=== PATIENT | female | born 1995 | race Caucasian/White ===

== ENCOUNTER 2023-06-10 18:54 | Inpatient (IN) | payer BC ==
[2023-06-10] MEDS: Lactated Ringer's 1,000 ML IV SCH (19:20)
[2023-06-10 19:52] VITALS: BMI 36.5
[2023-06-10] MEDS ORDERED: Misoprostol 200 MCG TAB RC PRN (20:30)
[2023-06-10] MEDS ORDERED: Diphenoxylate HCl/Atropine Tablet PO PRN ×2 (20:30)
[2023-06-10] MEDS ORDERED: Lidocaine 1% (PF) 30 ML VIAL SC PRN (20:30)
[2023-06-10] MEDS ORDERED: Oxytocin 30 units/NS 500 ML 500 ML IVPB SCH (20:30)
[2023-06-10] MEDS ORDERED: hydrALAZINE 20 MG/ML VIAL SLOW IVP PRN (20:30)
[2023-06-10] MEDS ORDERED: Methylergonovine 0.2 MG/ML VIAL IM PRN (20:30)
[2023-06-10] MEDS ORDERED: Carboprost 250 MCG/ML AMP IM PRN (20:30)
[2023-06-10] MEDS ORDERED: Oxytocin 30 units/NS 500 ML 500 ML IV SCH (20:30)
[2023-06-10] MEDS ORDERED: Ondansetron PF 4 MG/2 ML Vial IVP PRN (20:30)
[2023-06-10] MEDS ORDERED: Ibuprofen 800 MG TAB PO PRN (20:30)
[2023-06-10] MEDS ORDERED: Promethazine HCl 25 MG/ML VIAL IM PRN (20:30)
[2023-06-10] MEDS: Misoprostol 100 MCG TAB VAG SCH (20:40)
[2023-06-10 21:13] LABS: Hematocrit 37.2 % (34.9-44.5); Hemoglobin 12.6 g/dL (12.0-15.5); Mean Corpuscular HGB CONC 33.9 g/dL (32.0-36.0); Mean Corpuscular Hemoglobin 27.1 pg (27.0-33.0); Mean Platelet Volume 13.8 fl (7.4-10.4); Platelet Count 213 10x3/uL (150-450); RBC Distribution Width 13.7 % (11.5-14.5); Red Blood Cell (RBC) Count 4.65 10x6/uL (3.90-5.03); White Blood Cell (WBC) Count 9.8 10x3/uL (3.5-10.5)
[2023-06-10 21:14] LABS: Glucose 116 mg/dL (70-105)
[2023-06-10 22:02] LABS: HBSAg Index 0.18 S/CO (0-0.99); Hep B Surf Ag - L&D Non-Reactive S/CO (NonReactive)
[2023-06-10 22:08] LABS: Syphilis Antibody Nonreactive (Nonreactive); Syphilis Antibody Index 0.08 S/CO (<1.00 Non-Reactive)
[2023-06-11] MEDS: Misoprostol 100 MCG TAB VAG SCH ×4 (04:05→22:37)
[2023-06-11] MEDS: Lactated Ringer's 1,000 ML IV SCH ×3 (04:11→16:41)
[2023-06-11] MEDS ORDERED: Bupivacaine PF 0.5% 30 ML VIAL ONE (08:00)
[2023-06-11] MEDS ORDERED: fentaNYL 50 mcg/mL 1 mL Vial SLOW IVP SCH (08:00)
[2023-06-11] MEDS ORDERED: Bupivacaine 0.25% HCL 30 ML VIAL ONE (08:00)
[2023-06-11] MEDS ORDERED: ePHEDrine Sulfate 50 MG/10 ML VIAL ONE (08:00)
[2023-06-11] MEDS ORDERED: fentaNYL 50 mcg/mL 1 mL Vial ONE (08:10)
[2023-06-11] MEDS ORDERED: fentaNYL/Ropivacaine Epidural 100 ML ONE (08:23)
[2023-06-11] MEDS ORDERED: diphenhydrAMINE 50 MG/ML VIAL IVP PRN (10:31)
[2023-06-11] MEDS ORDERED: Acetaminophen 325 MG TAB PO PRN (10:31)
[2023-06-11] MEDS ORDERED: ePHEDrine Sulfate 50 MG/10 ML VIAL SLOW IVP PRN (10:31)
[2023-06-11] MEDS ORDERED: Lactated Ringer's 500 ML IV PRN (10:31)
[2023-06-11] MEDS ORDERED: Ondansetron PF 4 MG/2 ML Vial IVP PRN (10:31)
[2023-06-11] MEDS ORDERED: Naloxone HCl 0.4 mg/ml Vial IVP PRN ×2 (10:31)
[2023-06-11] MEDS ORDERED: Moisturizing Cream (Eucerin) 113 GM JAR TOP PRN (10:31)
[2023-06-11] MEDS ORDERED: Promethazine HCl 25 MG/ML VIAL IM PRN (10:31)
[2023-06-11] MEDS ORDERED: Communication Order-Pharmacy FS SCH (10:45)
[2023-06-11] MEDS ORDERED: fentaNYL 2 mcg/Ropivacaine 0.2% Epidural 100 ML CADD EPIDURAL SCH (10:45)
[2023-06-11] MEDS ORDERED: Milk Of Magnesia 30 ML UDCUP PO PRN (20:32)
[2023-06-11] MEDS ORDERED: Lanolin Ointment 7 GM TUBE TOP PRN (20:32)
[2023-06-11] MEDS ORDERED: Bisacodyl 10 MG SUPP PR PRN (20:32)
[2023-06-11] MEDS ORDERED: hydrALAZINE 20 MG/ML VIAL SLOW IVP PRN (20:32)
[2023-06-11] MEDS ORDERED: diphenhydrAMINE 25 MG CAP PO PRN (20:32)
[2023-06-11] MEDS ORDERED: Benzocaine-Menthol 82.5 ML CAN TOP PRN (20:32)
[2023-06-11] MEDS ORDERED: Boostrix 0.5 ML (Tdap) VIAL (>/=7 yrs of age) IM ONE (20:32)
[2023-06-11] MEDS ORDERED: Preparation H Ointment 28 GM TUBE PR PRN (20:32)
[2023-06-11] MEDS: Docusate 100 MG CAP PO SCH (23:41)
[2023-06-12] MEDS: Ibuprofen 800 MG TAB PO SCH ×3 (05:51→21:35)
[2023-06-12] MEDS: Ferrous Sulfate 325 MG TAB PO SCH ×2 (07:46→18:11)
[2023-06-12] MEDS: Prenatal Vitamin 1 TAB PO SCH (08:52)
[2023-06-12] MEDS: traMADol HCl 50 MG TAB PO PRN ×3 (08:52→23:59)
[2023-06-12] MEDS: Docusate 100 MG CAP PO SCH ×2 (08:52→21:35)
[2023-06-13] MEDS: Ibuprofen 800 MG TAB PO SCH (05:43)
[2023-06-13] MEDS: Ferrous Sulfate 325 MG TAB PO SCH (07:07)
[2023-06-13 07:59] VITALS: BP 109/72; TEMP 97.6
[2023-06-13] MEDS: Docusate 100 MG CAP PO SCH (08:09)
[2023-06-13] MEDS: Prenatal Vitamin 1 TAB PO SCH (08:09)
== END 2023-06-13 11:05 | disposition home or self-care (01) | DRG 806 ==
LOC: CSHLD 18:54 → CSHPP 06-11 23:20
PROVIDERS: ADMIT Obstetrics & Gynecology; ATTEND Obstetrics & Gynecology
PROC: 10E0XZZ Delivery of Products of Conception, External Approach (ICD-10-PCS; principal; 2023-06-11)
PROC: 0KQM0ZZ Repair Perineum Muscle, Open Approach (ICD-10-PCS; 2023-06-11)
PROC: 3E0234Z Introduction of Serum, Toxoid and Vaccine into Muscle, Percutaneous Approach (ICD-10-PCS; 2023-06-12)
DX: O24.429 Gestational diabetes mellitus in childbirth, unspecified control (principal); O36.0930 Maternal care for other rhesus isoimmunization, third trimester, not applicable or unspecified; Z37.0 Single live birth; Z3A.39 39 weeks gestation of pregnancy; O70.1 Second degree perineal laceration during delivery; O99.284 Endocrine, nutritional and metabolic diseases complicating childbirth; E28.2 Polycystic ovarian syndrome; Z79.84 Long term (current) use of oral hypoglycemic drugs; Z79.899 Other long term (current) drug therapy
CPT/HCPCS: 51702; 82947; 85027; 85461; 86780; 86850; 86900; 86901; 87340; 90384; 96372; J2405; J2590; J3010; J7120; S0020

== ENCOUNTER 2023-08-02 00:11 | Emergency (ER) | payer BC ==
[2023-08-02 01:31] LABS: #Basophils 0.1 10x3/uL (0.0-0.2); #Eosinphils 0.3 10x3/uL (0.0-0.5); #Monocytes 0.8 10x3/uL (0.0-1.1); #Neutrophils 6.2 10x3/uL (1.5-8.4); %Basophils 0.5 % (0.0-2.0); %Eosinophils 2.4 % (0.0-6.0); %Lymphocytes 30.8 % (18.0-47.0); %Monocytes 7.4 % (0.0-10.0); %Neutrophils 58.7 % (40.0-75.0); Hematocrit 40.6 % (34.9-44.5); Hemoglobin 13.1 g/dL (12.0-15.5); Mean Corpuscular HGB CONC 32.3 g/dL (32.0-36.0); Mean Corpuscular Hemoglobin 26.4 pg (27.0-33.0); Mean Corpuscular Volume 81.7 fl (81.6-98.3); Mean Platelet Volume 11.6 fl (7.4-10.4); Platelet Count 285 10x3/uL (150-450); Red Blood Cell (RBC) Count 4.97 10x6/uL (3.90-5.03); White Blood Cell (WBC) Count 10.6 10x3/uL (3.5-10.5)
[2023-08-02 01:39] LABS: BHCG - Serum Negative (NEGATIVE); Pregs Control Background? CLEAR/WHITE (CLR/WHITE); Pregs Control Bar Appear? YES (CONTROL BAR)
[2023-08-02 01:43] LABS: ALT (SGPT) 30 U/L (8-55); AST (SGOT) 20 U/L (5-34); Albumin 4.1 g/dL (3.5-5.0); Alkaline Phosphatase 93 U/L (40-110); Anion Gap 13 mmol/L (10-20); BUN (Urea Nitrogen) 14 mg/dL (7.0-18.7); Bilirubin, Total 0.3 mg/dL (0.2-1.2); Calc. Creatinine Clearance 0 mL/min (70-130); Calcium 10.4 mg/dL (7.8-10.44); Carbon Dioxide 28 mmol/L (22-29); Chloride 104 mmol/L (98-107); Estimated GFR 77; Globulin 3.2 g/dL (2.4-3.5); Glucose 112 mg/dL (70-105); Lipase 10 U/L (8-78); Potassium 4.4 mmol/L (3.5-5.1); Protein, Total 7.3 g/dL (6.0-8.3); Sodium 141 mmol/L (136-145)
[2023-08-02] MEDS ORDERED: Morphine 4 MG/ML VIAL ONE (01:45)
[2023-08-02] MEDS ORDERED: Ondansetron PF 4 MG/2 ML Vial ONE (01:45)
[2023-08-02] MEDS ORDERED: Ketorolac Tromethamine 30 MG (1 mL) VIAL ONE (02:36)
== END 2023-08-02 04:00 | disposition home or self-care (01) ==
LOC: CSHERS 00:11
DX: K80.70 Calculus of gallbladder and bile duct without cholecystitis without obstruction (principal)
CPT/HCPCS: 36415; 71045; 76705; 80053; 83690; 84703; 85025; 93005; 96374; 96375; J1885; J2270; J2405